=== PATIENT | male | born 1965 | race African-American/Black ===

== ENCOUNTER 2019-08-21 14:21 | Inpatient (IN) | payer OTHER ==
[2019-08-21 16:41] VITALS: BP 122/75; PULSE 90; TEMP 98.5; BMI 36.1
--- NOTE | 2019-08-21 17:15 | HP ---
CIWA Score - Admission Criteria [facility] Guidelines: Admission for Medically Managed Detox: Requires at least one of the followin. CIWA greater than 12 2. Seizures within the past 24 hours 3. Delirium tremens within the past 24 hours 4. Hallucinations within the past 24 hours 5. Acute intervention needed for co occurring medical disorder 6. Acute intervention needed for co occurring psychiatric disorder 7. Severe withdrawal that cannot be handled at a lower level of care (continued vomiting, continued diarrhea, abnormal vital signs) requiring intravenous medication and/or fluids 8. Admitting History and Physical - Smoking History Smoking history: Current every day smoker Have you smoked in the past 12 months: Yes Aproximately how many cigarettes per day: 7 - Alcohol/Substance Use Hx Alcohol Use: Yes Admission [facility] Allergies/Adverse Reactions: Allergies Allergy/AdvReac Type Severity Reaction Status Date / Time No Known Allergies Allergy Verified 08/21/19 16:29 History of Present Illness: pt here requesting rehab from cocaine and cannabis use, reports 100 $ /day , latest use yesterday , first age of use 23 cannabis : 100 $ /day denies other illicits or ETOH pmhx : denies PSHX : SAD on monthly injections INvega Sustena latest 2 days ago pshx : denies tobacco : 09/26 ppd SHX " I live in a mental health residence " Exam Limitations: No Limitations - Ebola screening Have you traveled outside of the country in the last 21 days: No Have you had contact with anyone from an Ebola affected area: No - Review of Systems Constitutional: No Symptoms Reported EENT: reports: No Symptoms Reported Respiratory: reports: No Symptoms reported Cardiac: reports: No Symptoms Reported GI: reports: No Symptoms Reported : reports: No Symptoms Reported Musculoskeletal: reports: No Symptoms Reported Integumentary: reports: Dryness Neuro: reports: No Symptoms reported Endocrine: reports: No Symptoms Reported Hematology: reports: No Symptoms Reported Psychiatric: reports: Orientated x3 Patient History - Patient Medical History Hx Anemia: No Hx Asthma: No Hx Chronic Obstructive Pulmonary Disease (COPD): No Hx Cancer: No Hx Cardiac Disorders: No Hx Congestive Heart Failure: No Hx Hypertension: No Hx Hypercholesterolemia: No Hx Pacemaker: No HX Cerebrovascular Accident: No Hx Seizures: No Hx Dementia: No Hx Diabetes: No Hx Gastrointestinal Disorders: No Hx Liver Disease: No Hx Genitourinary Disorders: No Hx Sexually Transmitted Disorders: No Hx Renal Disease (ESRD): No Hx Thyroid Disease: No Hx Human Immunodeficiency Virus (HIV): No (negative) Hx Hepatitis C: No Hx Depression: No Hx Suicide Attempt: No Hx Bipolar Disorder: No Hx Schizophrenia: No - Patient Surgical History Past Surgical History: No - PPD History Date: 12/28/14 - Smoking Cessation Smoking history: Current every day smoker Have you smoked in the past 12 months: Yes Aproximately how many cigarettes per day: 7 Hx Chewing Tobacco Use: No Initiated information on smoking cessation: Yes 'Breaking Loose' booklet given: 08/21/19 - Substances abused Cocaine Substance route: Smoking Frequency: Daily Amount used: 100 dollars Age of first use: 23 Date of last use: 08/20/19 Marijuana/Hashish Substance route: Smoking Frequency: Daily Amount used: 100 dollars Age of first use: 23 Date of last use: 08/20/19 Admission Physical Exam BHS - Vital Signs Vital Signs: Vital Signs - 24 hr 08/21/19 16:28 Temperature 98.5 F Pulse Rate 90 Respiratory 20 Rate Blood Pressure 122/75 - Physical General Appearance: Yes: No Apparent Distress HEENTM: Yes: EOMI, Hearing grossly Normal, Normocephalic, Muffled/Hoarse Voice Respiratory: Yes: Chest Non-Tender, Lungs Clear, Normal Breath Sounds, No Respiratory Distress, No Accessory Muscle Use Neck: Yes: No masses,lesions,Nodules, Trachea in good position Cardiology: Yes: Regular Rhythm, Regular Rate, S1, S2 Abdominal: Yes: Non Tender, Soft Musculoskeletal: Yes: Gait Steady Neurological: Yes: Fully Oriented, Alert, Motor Strength 5/5 Integumentary: Yes: Warm - Diagnostic (1) Cocaine use disorder Current Visit: Yes Status: Chronic (2) Cannabis use disorder, mild, abuse Current Visit: Yes Status: Chronic (3) Nicotine dependence Current Visit: Yes Status: Chronic Qualifiers: Nicotine product type: cigarettes Breathalyzer - Breathalyzer Breathalyzer: 0 Urine Drug Screen - Test Device Lot number: [id number] Expiration date: 04/21/21 - Control Is test valid?: Yes - Results Drug screen NEGATIVE: No Urine drug screen results: THC-Marijuana, JARED-Cocaine Inpatient Rehab Admission - Rehab Decision to Admit Inpatient rehab admission?: Yes - Initial Determination Are CD services needed?: Yes Free of communicable disease: Yes Not in need of hospitalization: Yes - Rehab Admission Criteria Previous failed treatment: No Poor recovery environment: No Comorbidities: Yes Lacks judgement: Yes Patient is meeting Inpatient Rehab admission criteria:: Yes
[2019-08-21] MEDS ORDERED: MAGNESIUM HYDROX 2400MG/30ML ORAL SUSPENSION 30 ML CUP PO PRN (17:34)
[2019-08-21] MEDS ORDERED: ACETAMINOPHEN 325 MG TABLET (FP) PO PRN (17:34)
[2019-08-21] MEDS ORDERED: MAG HYDROX/AL HYDROX/SIMETH 30 ML UNIT-DOSE CUP PO PRN (17:34)
[2019-08-21] MEDS ORDERED: MENTHOL/PHENOL 1 EACH UD MM PRN (17:34)
[2019-08-21] MEDS ORDERED: MAGNESIUM CITRATE 300 ML BOTTLE PO PRN (17:34)
[2019-08-21] MEDS ORDERED: LOPERAMIDE HCL 2 MG CAPSULE PO PRN (17:34)
[2019-08-21] MEDS ORDERED: hydrOXYzine PAMOATE 25 MG CAPSULE (FP) PO PRN (17:34)
[2019-08-21] MEDS ORDERED: guaiFENesin 200 MG/10 ML 10 ML UNIT-DOSE CUPS PO PRN (17:34)
[2019-08-21] MEDS ORDERED: IBUPROFEN 400 MG TABLET (FP) PO PRN (17:34)
[2019-08-21] MEDS ORDERED: TUBERCULIN PPD 5 TU/0.1ML VIAL ID ONE (19:39)
[2019-08-22] MEDS: THIAMINE HCL 100 MG TABLET (FP) PO SCH ×2 (00:34→21:11)
[2019-08-22 10:50] LABS: ALBUMIN 2.8 g/dl (3.4-5.0); BILIRUBIN,TOTAL 0.3 mg/dL (0.2-1); BLOOD UREA NITROGEN 7.3 mg/dL (7-18); CALCIUM 8.2 mg/dL (8.5-10.1); CREATININE 0.8 mg/dL (0.55-1.3); POTASSIUM 3.7 mmol/L (3.5-5.1); TOT PROT 6.1 g/dl (6.4-8.2)
[2019-08-22 11:00] LABS: HEMATOCRIT 39.6 % (35.4-49); HEMOGLOBIN 13.1 GM/dL (11.7-16.9); MCH 28.1 pg (25.7-33.7); MCHC 33.1 g/dl (32.0-35.9); MEAN CELL VOLUME 84.9 fl (80-96); MEAN PLT VOLUME 9.2 fl (7.5-11.1); PLATELET COUNT 189 K/MM3 (134-434); RBC 4.66 M/mm3 (4.00-5.60); RDW 16.5 % (11.9-15.9); WHITE BLOOD COUNT 5.8 K/mm3 (4.0-10.0)
[2019-08-22] MEDS: PRENATAL VITAMINS W/ FOLIC ACID TABLET (FP) PO SCH (11:00)
[2019-08-22 18:08] LABS: URINE APPEARANCE CLEAR; URINE BILIRUBIN NEGATIVE (NEGATIVE); URINE COLOR YELLOW; URINE GLUCOSE (UA) NEGATIVE (NEGATIVE); URINE KETONE NEGATIVE (NEGATIVE); URINE LEUK ESTERASE NEGATIVE (NEGATIVE); URINE NITRITE NEGATIVE (NEGATIVE); URINE PROTEIN NEGATIVE (NEGATIVE)
[2019-08-22] MEDS: MELATONIN 5 MG TABLETS PO PRN (21:11)
[2019-08-22] MEDS: P-EPHED 60MG/TRIPROLIDI 2.5MG TABLET PO PRN (21:12)
[2019-08-23] MEDS: PRENATAL VITAMINS W/ FOLIC ACID TABLET (FP) PO SCH (10:55)
--- NOTE | 2019-08-23 16:20 | CONSULT ---
[facility] Psychiatric Consult - Data Date of interview: 08/23/19 Admission source: [facility] Identifying data: Patient is a 54 year old single male, without children, unemployed, domiciled (resides in [facility]), and is not currently receiving financial assistance. This is patient's first admission to rehab at [facility]. Patient admitted to for cocaine and marijuana dependence. Substance Abuse History: Smoking Cessation. Smoking history: Current every day smoker. Have you smoked in the past 12 months: Yes. Aproximately how many cigarettes per day: 7. Hx Chewing Tobacco Use: No. Initiated information on smoking cessation: Yes. 'Breaking Loose' booklet given: 08/21/19. - Substances abused. Cocaine. Substance route: Smoking. Frequency: Daily. Amount used: 100 dollars. Age of first use: 23. Date of last use: 08/20/19. * * Marijuana/Hashish. Substance route: Smoking. Frequency: Daily. Amount used : 100 dollars. Age of first use: 23. Date of last use: 08/20/19 Medical History: denies. Psychiatric History: Patient's first psychiatric contact was approximately five years ago after onset distuburances of auditory hallucinations. Unable to recall name of facility and medications prescribed. Mr. Rick reports past hospitalizations at [facility], [facility] and most recently at [facility] last year for depression. Patient unable to provide mortgage underwriter with a cohesive psychiatric history. Mr. Rick is currently followed by [facility] and reports being prescribed Invega Sustenna (unknown dose) + Risperdal 1mg HS. Reports receiving the Invega Sustenna three days ago. Patient denies history of suicide attempt. At present patient denies auditory/visual hallucinations, suicidal/homicidal ideation. No psychosis noted. Physical/Sexual Abuse/Trauma History: denies. Mental Status Exam - Mental Status Exam Alert and Oriented to: Time, Place, Person Cognitive Function: Good Patient Appearance: Well Groomed Mood: Withdrawn Affect: Blunted Patient Behavior: Cooperative Speech Pattern: Clear Voice Loudness: Normal Thought Process: Goal Oriented Thought Disorder: Not Present Hallucinations: Denies Suicidal Ideation: Denies Homicidal Ideation: Denies Insight/Judgement: Poor Sleep: Fair Appetite: Fair Muscle strength/Tone: Normal Gait/Station: Normal Psychiatric Findings - Problem List ([place] 1, 2,3) (1) Schizophrenia Status: Chronic (2) Cannabis use disorder, mild, abuse Status: Chronic (3) Cocaine use disorder Status: Chronic (4) Nicotine dependence Status: Chronic Qualifiers: Nicotine product type: cigarettes - Initial Treatment Plan Initial Treatment Plan: Psychoeducation provided. Rehab in progress. Will order Risperdal 1mg HS. Benefits and side effects discussed. Verbal consent given. Recommendation: Contact [facility] for collateral information. Patient unable to state phone number to contact [facility]. Would be beneficial to contact place of residence ( [facility]) for additional information. Stated to mortgage underwriter " they brought me here." Stated that Elton is his counselor and Natalie is the [facility] leader. Patient does not know the name of the psychiatrist.
[2019-08-23] MEDS: THIAMINE HCL 100 MG TABLET (FP) PO SCH (21:27)
[2019-08-23] MEDS: MELATONIN 5 MG TABLETS PO PRN (21:27)
[2019-08-23] MEDS: P-EPHED 60MG/TRIPROLIDI 2.5MG TABLET PO PRN (21:27)
[2019-08-23] MEDS ORDERED: risperiDONE 1 MG TABLET (FP) PO SCH (22:00)
[2019-08-24] MEDS ORDERED: BENZOCAINE 20 % GEL TUBE MM PRN (09:47)
[2019-08-24] MEDS: PRENATAL VITAMINS W/ FOLIC ACID TABLET (FP) PO SCH (10:45)
--- NOTE | 2019-08-24 12:02 | EKG ---
Test Reason : Blood Pressure : / mmHG Vent. Rate : 081 BPM Atrial Rate : 081 BPM P-R Int : 170 ms QRS Dur : 094 ms QT Int : 400 ms P-R-T Axes : 049 039 031 degrees QTc Int : 464 ms NORMAL SINUS RHYTHM NORMAL ECG NO PREVIOUS ECGS AVAILABLE Confirmed by MARIANA HOGUE MD ([id number]) on 08/24/2019 12:02:18 PM Referred By: Confirmed By:MARIANA HOGUE MD
--- NOTE | 2019-08-24 16:31 | PN ---
[facility] Progress Note Note: Notified by RN Alycia Rodriguez that patient requested to sign out of treatment. Patient was admitted 08/21/19 for cocaine/cannabis dependence to rehab and decided to sign out AMA despite encouragement to stay in treatment and explanation of risk factors with signing out AMA. Patient continued with AMA process and left prior to [employer] COMM[employer]IONER evaluation. Vital Signs Temperature 98.5 F 08/21/19 16:28 Pulse Rate 90 08/21/19 16:28 Respiratory Rate 18 08/24/19 07:13 Blood Pressure 122/75 08/21/19 16:28 O2 Sat by Pulse Oximetry (%) Laboratory Tests 08/22/19 08/22/19 08/22/19 07:50 07:50 10:46 WBC 5.8 RBC 4.66 Hgb 13.1 Hct 39.6 MCV 84.9 MCH 28.1 MCHC 33.1 RDW 16.5 H Plt Count 189 MPV 9.2 Sodium 145 Potassium 3.7 Chloride 114 H Carbon Dioxide 27 Anion Gap 4 L BUN 7.3 Creatinine 0.8 Est GFR (CKD-EPI)AfAm 119.04 Est GFR (CKD-EPI)NonAf 102.71 Random Glucose 83 Calcium 8.2 L Total Bilirubin 0.3 AST 16 ALT 17 Alkaline Phosphatase 62 Total Protein 6.1 L Albumin 2.8 L Urine Color Yellow Urine Appearance Clear Urine pH 7.0 D Ur Specific [place]dman 1.022 Urine Protein Negative Urine Glucose (UA) Negative Urine Ketones Negative Urine Blood Negative Urine Nitrite Negative Urine Bilirubin Negative Urine Urobilinogen 1.0 Ur Leukocyte Esterase Negative
--- NOTE | 2019-08-24 16:35 | DS ---
[facility] Rehab Discharge Summary - [facility] Rehab Discharge Summary Admission Date: 08/21/19 Discharge Date: 08/24/19 - History Present History: Cannabis dependence, Cocaine dependence - Discharge Physical Exam Vital Signs: Vital Signs Temperature 98.5 F 08/21/19 16:28 Pulse Rate 90 08/21/19 16:28 Respiratory Rate 18 08/24/19 07:13 Blood Pressure 122/75 08/21/19 16:28 O2 Sat by Pulse Oximetry (%) - Medication Discharge Medications: Ambulatory Orders Paliperidone Palmitate [Invega Sustenna (Non Formulary)] 1.5 mg IM MONTHLY 08/21 Risperidone [Risperdal] 1 mg PO HS 08/21/19 - Discharge Instructions Diet, activity, other medical instructions: Diet: Activity: Other medical instructions: - AMA Did Patient Leave Against Medical Advice: Yes
== END 2019-08-24 15:10 | disposition left against medical advice (07) | DRG 770 ==
LOC: YASAS 14:21 → Y3W 17:41
PROVIDERS: ADMIT Neuromusculoskeletal Medicine & OMM; ATTEND Neuromusculoskeletal Medicine & OMM
PROC: HZ42ZZZ Group Counseling for Substance Abuse Treatment, Cognitive-Behavioral (ICD-10-PCS; principal; 2019-08-21)
DX: F14.20 Cocaine dependence, uncomplicated (principal); F12.20 Cannabis dependence, uncomplicated; F17.210 Nicotine dependence, cigarettes, uncomplicated; F20.9 Schizophrenia, unspecified
CPT/HCPCS: 36415; 80053; 81003; 85027; 86593; 93005; 93010; J2794